=== PATIENT | female | born 1960 | race Caucasian/White ===

== ENCOUNTER 2020-04-24 07:38 | Outpatient (REF) | payer MEDICARE, MEDICAID, SELFPAY | END 2020-04-24 07:39 | disposition home or self-care (01) | LOC: HO.MDS 07:38 | PROVIDERS: PCP Internal Medicine; Visit Provider Hospitalist | DX: D80.1 Nonfamilial hypogammaglobulinemia (principal) | CPT/HCPCS: 96365; 96366; J1561; Q0163 ==

== ENCOUNTER 2020-05-22 07:42 | Outpatient (REF) | payer MEDICARE, MEDICAID, SELFPAY | END 2020-05-22 07:43 | disposition home or self-care (01) | LOC: HO.MDS 07:42 | PROVIDERS: PCP Internal Medicine; Visit Provider Hospitalist | DX: D80.1 Nonfamilial hypogammaglobulinemia (principal) | CPT/HCPCS: 96365; 96366; J1572; Q0163 ==

== ENCOUNTER 2020-06-18 07:18 | Outpatient (REF) | payer MEDICARE, MEDICAID, SELFPAY | END 2020-06-18 07:19 | disposition home or self-care (01) | LOC: HO.MDS 07:18 | PROVIDERS: PCP Internal Medicine; Visit Provider Hospitalist | DX: D80.1 Nonfamilial hypogammaglobulinemia (principal) | CPT/HCPCS: 96365; 96366; 99212; J1572; Q0163 ==

== ENCOUNTER → 2020-07-15 08:56 | Outpatient (REF) | payer MEDICARE, MEDICAID, SELFPAY | LOC: HO.SL 08:56 | PROVIDERS: PCP Internal Medicine; Visit Provider Hospitalist | DX: G47.33 Obstructive sleep apnea (adult) (pediatric) (principal) | CPT/HCPCS: 95806 ==

== ENCOUNTER 2020-07-16 07:25 | Outpatient (REF) | payer MEDICARE, MEDICAID, SELFPAY | END 2020-07-16 07:26 | disposition home or self-care (01) | LOC: HO.MDS 07:25 | PROVIDERS: PCP Internal Medicine; Visit Provider Hospitalist | DX: D80.1 Nonfamilial hypogammaglobulinemia (principal) | CPT/HCPCS: 96365; 96366; J1572; Q0163 ==

== ENCOUNTER 2020-08-13 07:19 | Outpatient (REF) | payer MEDICARE, MEDICAID, SELFPAY | END 2020-08-13 07:20 | disposition home or self-care (01) | LOC: HO.MDS 07:19 | PROVIDERS: PCP Internal Medicine; Visit Provider Hospitalist | DX: D80.1 Nonfamilial hypogammaglobulinemia (principal) | CPT/HCPCS: 96365; 96366; J1572; Q0163 ==

== ENCOUNTER → 2020-08-23 10:13 | Outpatient (BNVA) | payer MEDICARE, MEDICAID, SELFPAY | PROVIDERS: PCP Internal Medicine; Visit Provider Hospitalist | DX: G47.33 Obstructive sleep apnea (adult) (pediatric) (principal) | CPT/HCPCS: Q3014 ==

== ENCOUNTER → 2021-02-28 09:18 | Outpatient (BNVA) | payer MEDICARE, MEDICAID, SELFPAY | PROVIDERS: PCP Internal Medicine; Visit Provider Hospitalist | DX: G47.33 Obstructive sleep apnea (adult) (pediatric) (principal); D80.1 Nonfamilial hypogammaglobulinemia; Z94.2 Lung transplant status | CPT/HCPCS: 99212 ==

== ENCOUNTER → 2021-04-27 19:13 | Outpatient (REF) | payer MEDICARE, MEDICAID, SELFPAY | LOC: HO.SL 19:13 | PROVIDERS: PCP Internal Medicine; Visit Provider Hospitalist | DX: G47.33 Obstructive sleep apnea (adult) (pediatric) (principal) | CPT/HCPCS: 95811 ==

== ENCOUNTER → 2021-05-13 13:23 | Outpatient (BNVA) | payer MEDICARE, MEDICAID, SELFPAY | PROVIDERS: PCP Internal Medicine; Visit Provider Hospitalist | DX: G47.33 Obstructive sleep apnea (adult) (pediatric) (principal); D80.1 Nonfamilial hypogammaglobulinemia; Z94.2 Lung transplant status | CPT/HCPCS: Q3014 ==